=== PATIENT | male | born 2000 ===

== ENCOUNTER 2020-04-10 16:29 | Observation (INO) ==
[2020-04-10] MEDS ORDERED: Ketorolac 15 MG/ML VIAL IVP ONE (16:43)
[2020-04-10] MEDS ORDERED: Isovue-370 500 ML BOTTLE IVP ONE (16:43)
[2020-04-10] MEDS ORDERED: Ondansetron 4 MG/2 ML VIAL IVP ONE (16:43)
[2020-04-10] MEDS ORDERED: *HR* FentaNYL (PF) 100 MCG/2 ML VIAL IVP STA (16:43)
[2020-04-10 17:19] LABS: Basophils # 0.1 K/mcL (0.0-0.2); Basophils % 1.3 %; Eosinophils % 0.7 %; Hematocrit 39.5 % (37.5-50.1); Hemoglobin 13.1 g/dL (12.9-16.9); Immature Granulocytes % 0.4 % (0-4); Lymphocytes # 2.5 K/mcL (0.6-4.6); Lymphocytes % 45.2 %; Mean Corpuscular HGB Conc 33.2 g/dL (31.6-35.5); Mean Corpuscular Hemoglobin 27.7 pg (28.0-33.3); Mean Corpuscular Volume 83.5 fL (83.0-100.0); Mean Platelet Volume 8.2 fL (9.4-12.4); Monocytes # 0.9 K/mcL (0.0-1.3); Monocytes % 16.7 %; Platelet Count 262 K/mcL (140-400); Red Blood Count 4.73 M/mcL (4.19-5.50); Red Cell Distribution Width 11.8 % (11.5-14.5); Segmented Neutrophils % 35.7 %; White Blood Count 5.6 K/mcL (4.3-11.1)
[2020-04-10 17:33] LABS: Amorphous Sediment,Urine Few per hpf (None-Few); Bilirubin,Urine Negative (Negative); Blood,Urine Negative (Negative); Clarity,Urine Ex.Turbid (Clear); Color,Urine Yellow (Yellow); Glucose,Urine (UA) Normal (Normal); Ketones,Urine 10 mg/dL (Negative); Leukocyte Esterase,Urine Negative (Negative); Mucus,Urine Few per lpf (None-Few); Nitrite,Urine Negative (Negative); Protein,Urine 30 mg/dL (Neg-Trace); Specific Gravity,Urine 1.024 (1.010-1.025); WBC,Urine 15-30 per hpf (0-3)
[2020-04-10 17:34] LABS: BUN/Creatinine Ratio 21 (6-26); Blood Urea Nitrogen 12 mg/dL (6-20); Calcium 9.1 mg/dL (8.6-10.3); Carbon Dioxide 24 mEq/L (23-29); Chloride 99 mEq/L (98-107); Glucose 89 mg/dL (70-105); Osmolality,Calculated 275 (280-300); Potassium 3.6 mEq/L (3.5-5.1); Sodium 133 mEq/L (136-145); eGFR For African Americans > 60 (> 60); eGFR For Non-African Americans > 60 (> 60)
[2020-04-10 17:35] LABS: Albumin 4.3 g/dL (3.5-5.7); Albumin/Globulin Ratio 1.4 (1.1-2.2); Bilirubin,Direct 0.1 mg/dL (0.0-0.2); Bilirubin,Indirect 0.3 mg/dL (0.0-1.0); Bilirubin,Total 0.4 mg/dL (0.3-1.0); Globulin 3.1 g/dL (2.4-3.5); Platelet Estimate Normal (Normal); Total Protein 7.4 g/dL (6.4-8.9)
[2020-04-10 17:36] LABS: Reactive Lymphocytes Present (Not Present)
[2020-04-10] MEDS ORDERED: cefTRIAXone 1,000 MG in 0.9 % Sodium Chloride Mini Bag 100 ML IVPB ONE (18:28)
[2020-04-10] MEDS ORDERED: Ondansetron ODT 4 MG TAB.RAPDIS SL PRN (19:29)
[2020-04-10] MEDS ORDERED: Naloxone 0.4 MG/ML INJ IVP PRN (19:29)
[2020-04-10] MEDS ORDERED: *HR* OxyCODONE Immed Rel 5 MG TABLET PO PRN ×2 (19:31→19:32)
[2020-04-10] MEDS ORDERED: Ringers Solution, Lactated 1,000 ML IVC ONE (19:33)
[2020-04-10 20:36] LABS: INR 1.2; Prothrombin Time 13.9 Seconds (9.4-12.1)
[2020-04-10] MEDS: Ketorolac 15 MG/ML VIAL IVP PRN (22:19)
[2020-04-11] MEDS ORDERED: traZODone 50 MG TABLET PO SCH ×2 (03:00→21:00)
[2020-04-11] MEDS ORDERED: *HR* Enoxaparin 40 MG/0.4 ML SYRINGE SQ SCH (06:00)
[2020-04-11 06:21] LABS: Hematocrit 39.9 % (37.5-50.1); Hemoglobin 13.4 g/dL (12.9-16.9); Mean Corpuscular HGB Conc 33.6 g/dL (31.6-35.5); Mean Corpuscular Hemoglobin 28.3 pg (28.0-33.3); Mean Corpuscular Volume 84.2 fL (83.0-100.0); Mean Platelet Volume 8.2 fL (9.4-12.4); Platelet Count 261 K/mcL (140-400); Red Blood Count 4.74 M/mcL (4.19-5.50); Red Cell Distribution Width 11.9 % (11.5-14.5); White Blood Count 6.4 K/mcL (4.3-11.1)
[2020-04-11] MEDS: Ketorolac 15 MG/ML VIAL IVP PRN ×2 (06:33→16:17)
[2020-04-11 06:35] LABS: BUN/Creatinine Ratio 25 (6-26); Blood Urea Nitrogen 13 mg/dL (6-20); Carbon Dioxide 22 mEq/L (23-29); Chloride 102 mEq/L (98-107); Glucose 74 mg/dL (70-105); Osmolality,Calculated 279 (280-300); Potassium 3.5 mEq/L (3.5-5.1); Sodium 135 mEq/L (136-145); eGFR For African Americans > 60 (> 60); eGFR For Non-African Americans > 60 (> 60)
[2020-04-11] MEDS ORDERED: cefTRIAXone 1,000 MG in Water for inj. (sterile) 10 ML IVP SCH (09:00)
[2020-04-11] MEDS ORDERED: Gabapentin 400 MG CAPSULE PO SCH (10:00)
[2020-04-11] MEDS ORDERED: Dextrose Gel 15 GM/37.5 ML TUBE PO PRN ×2 (11:10→20:41)
[2020-04-11] MEDS ORDERED: Ondansetron 4 MG/2 ML VIAL IVP PRN (17:22)
[2020-04-11] MEDS ORDERED: *HR* FentaNYL (PF) 100 MCG/2 ML VIAL IVP PRN (17:22)
[2020-04-11] MEDS ORDERED: Isovue-300 50ML VIAL ONE (18:35)
[2020-04-11] MEDS ORDERED: Dexamethasone 4 MG/ML VIAL ONE (18:37)
[2020-04-11] MEDS ORDERED: *HR* Propofol 200 MG/20 ML VIAL IVP ONE (18:37)
[2020-04-11] MEDS ORDERED: Lidocaine -MPF 4% 5 ML AMPUL ONE (18:37)
[2020-04-11] MEDS ORDERED: Ondansetron 4 MG/2 ML VIAL ONE (18:37)
[2020-04-11] MEDS ORDERED: Lidocaine -MPF 2% 2 ML VIAL ONE (18:37)
[2020-04-11] MEDS ORDERED: *HR* Succinylcholine 200 MG/10 ML VIAL IVP ONE (18:37)
[2020-04-11] MEDS ORDERED: *HR* Midazolam HCl 2 MG/2 ML VIAL ONE (18:37)
[2020-04-11] MEDS ORDERED: *HR* FentaNYL (PF) 100 MCG/2 ML VIAL ONE (18:37)
[2020-04-11] MEDS ORDERED: Ketorolac 15 MG/ML VIAL IVP PRN (20:41)
[2020-04-11] MEDS ORDERED: Naloxone 0.4 MG/ML INJ IVP PRN (20:41)
[2020-04-11] MEDS ORDERED: Ondansetron ODT 4 MG TAB.RAPDIS SL PRN (20:41)
[2020-04-11] MEDS ORDERED: *HR* OxyCODONE Immed Rel 5 MG TABLET PO PRN ×2 (20:41)
[2020-04-11] MEDS ORDERED: rOPINIRole 1 MG TABLET PO SCH ×2 (21:00)
[2020-04-11] MEDS: Gabapentin 400 MG CAPSULE PO SCH (21:00)
[2020-04-12] MEDS ORDERED: *HR* Enoxaparin 40 MG/0.4 ML SYRINGE SQ SCH (06:00)
[2020-04-12 06:57] LABS: Hematocrit 36.6 % (37.5-50.1); Hemoglobin 12.4 g/dL (12.9-16.9); Mean Corpuscular HGB Conc 33.9 g/dL (31.6-35.5); Mean Corpuscular Hemoglobin 28.4 pg (28.0-33.3); Mean Corpuscular Volume 83.9 fL (83.0-100.0); Mean Platelet Volume 8.1 fL (9.4-12.4); Platelet Count 293 K/mcL (140-400); Red Blood Count 4.36 M/mcL (4.19-5.50); Red Cell Distribution Width 11.5 % (11.5-14.5); White Blood Count 4.8 K/mcL (4.3-11.1)
[2020-04-12 07:18] LABS: BUN/Creatinine Ratio 31 (6-26); Blood Urea Nitrogen 18 mg/dL (6-20); Calcium 9.2 mg/dL (8.6-10.3); Carbon Dioxide 14 mEq/L (23-29); Chloride 103 mEq/L (98-107); Glucose 117 mg/dL (70-105); Osmolality,Calculated 277 (280-300); Potassium 4.2 mEq/L (3.5-5.1); Sodium 132 mEq/L (136-145); eGFR For African Americans > 60 (> 60); eGFR For Non-African Americans > 60 (> 60)
[2020-04-12] MEDS: Gabapentin 400 MG CAPSULE PO SCH (08:55)
[2020-04-12] MEDS ORDERED: cefTRIAXone 1,000 MG in Water for inj. (sterile) 10 ML IVP SCH (09:00)
[2020-04-12 09:57] VITALS: BP 106/61
[2020-04-17 06:33] LABS: Calculi Mass 12 mg
== END 2020-04-12 11:35 | disposition home or self-care (01) ==
LOC: EMEROOARM 16:29 → 3ANU 16:29 → SUATTDRO 20:16 → 3ANU 21:05
PROVIDERS: ADMIT Internal Medicine; ATTEND Internal Medicine

== ENCOUNTER 2020-04-15 18:28 | Observation (INO) ==
[2020-04-15] MEDS ORDERED: Ondansetron 4 MG/2 ML VIAL IVP ONE (18:57)
[2020-04-15] MEDS ORDERED: Ketorolac 15 MG/ML VIAL IVP ONE (18:57)
[2020-04-15] MEDS ORDERED: Morphine Sulfate 2 MG/ML SYRINGE IVP ONE (19:07)
[2020-04-15] MEDS ORDERED: Isovue-370 500 ML BOTTLE IVP ONE (19:22)
[2020-04-15] MEDS ORDERED: cefTRIAXone 1,000 MG in Water for inj. (sterile) 10 ML IVP ONE (19:22)
[2020-04-15 19:28] LABS: Bilirubin,Urine Negative (Negative); Blood,Urine Moderate (Negative); Glucose,Urine (UA) Normal (Normal); Ketones,Urine 20 mg/dL (Negative); Leukocyte Esterase,Urine Small (Negative); Nitrite,Urine Negative (Negative); Protein,Urine 200 mg/dL (Neg-Trace); Specific Gravity,Urine 1.025 (1.010-1.025)
[2020-04-15 19:32] LABS: Color,Urine Red (Yellow)
[2020-04-15 19:34] LABS: Clarity,Urine Cloudy (Clear)
[2020-04-15] MEDS ORDERED: 0.9 % Sodium Chloride 1,000 ML IVC ONE (20:00)
[2020-04-15] MEDS ORDERED: 0.9 % Sodium Chloride 1,000 ML ONE (20:02)
[2020-04-15 20:29] LABS: Basophils # 0.2 K/mcL (0.0-0.2); Basophils % 1.8 %; Eosinophils # 0.1 K/mcL (0.0-0.6); Eosinophils % 0.6 %; Hemoglobin 12.9 g/dL (12.9-16.9); Immature Granulocytes % 1.4 % (0-4); Lymphocytes % 49.3 %; Mean Corpuscular HGB Conc 33.9 g/dL (31.6-35.5); Mean Corpuscular Hemoglobin 27.6 pg (28.0-33.3); Mean Corpuscular Volume 81.2 fL (83.0-100.0); Mean Platelet Volume 8.5 fL (9.4-12.4); Monocytes # 1.1 K/mcL (0.0-1.3); Monocytes % 12.9 %; Platelet Count 335 K/mcL (140-400); Red Blood Count 4.68 M/mcL (4.19-5.50); Red Cell Distribution Width 11.9 % (11.5-14.5)
[2020-04-15 20:43] LABS: Lymphocytes # 4.3 K/mcL (0.6-4.6); White Blood Count 8.8 K/mcL (4.3-11.1)
[2020-04-15 20:44] LABS: Reactive Lymphocytes Present (Not Present); Toxic Granulation Present (Not Present)
[2020-04-15 20:47] LABS: Albumin 4.8 g/dL (3.5-5.7); Albumin/Globulin Ratio 1.3 (1.1-2.2); Bilirubin,Direct 0.1 mg/dL (0.0-0.2); Bilirubin,Indirect 0.4 mg/dL (0.0-1.0); Bilirubin,Total 0.5 mg/dL (0.3-1.0); Globulin 3.8 g/dL (2.4-3.5); Total Protein 8.6 g/dL (6.4-8.9)
[2020-04-15 20:48] LABS: BUN/Creatinine Ratio 23 (6-26); Blood Urea Nitrogen 14 mg/dL (6-20); Calcium 9.6 mg/dL (8.6-10.3); Carbon Dioxide 24 mEq/L (23-29); Chloride 95 mEq/L (98-107); Glucose 90 mg/dL (70-105); Osmolality,Calculated 274 (280-300); Potassium 3.2 mEq/L (3.5-5.1); Sodium 132 mEq/L (136-145); eGFR For African Americans > 60 (> 60); eGFR For Non-African Americans > 60 (> 60)
[2020-04-15] MEDS ORDERED: Potassium Chloride 40 MEQ, Lidocaine 1% 2 ML in 0.9 % Sodium Chloride 500 ML IVPB ONE (20:49)
[2020-04-15] MEDS ORDERED: methylPREDNISolone 125 MG/2 ML VIAL IVP ONE (21:40)
[2020-04-15] MEDS ORDERED: MetroNIDAZOLE 500 MG/100 ML 500 MG/100 ML BAG IVPB ONE (21:46)
[2020-04-15] MEDS ORDERED: *HR* HYDROmorphone (PF) 1 MG/ML SYRINGE IVP ONE (21:58)
[2020-04-15 22:09] LABS: Hepatitis B Surface Antigen Nonreactive (Nonreactive)
[2020-04-15 22:37] LABS: Hepatitis C Virus Antibody Nonreactive (Nonreactive)
[2020-04-15 22:38] LABS: Hepatitis B Core IgM Nonreactive (Nonreactive)
[2020-04-15 22:39] LABS: Hepatitis A Antibody IgM Nonreactive (Nonreactive)
[2020-04-15] MEDS ORDERED: Ondansetron 4 MG/2 ML VIAL IVP PRN (22:48)
[2020-04-15] MEDS ORDERED: Naloxone 0.4 MG/ML INJ IVP PRN (22:48)
[2020-04-16] MEDS ORDERED: 0.9 % Sodium Chloride 1,000 ML IVC SCH (00:45)
[2020-04-16] MEDS ORDERED: Acetaminophen 325 MG TABLET PO PRN (00:48)
[2020-04-16] MEDS: rOPINIRole 1 MG TABLET PO SCH ×2 (02:07→19:39)
[2020-04-16] MEDS: traZODone 50 MG TABLET PO SCH ×2 (02:08→19:39)
[2020-04-16] MEDS: Gabapentin 400 MG CAPSULE PO SCH ×4 (02:08→19:39)
[2020-04-16] MEDS ORDERED: Ondansetron 4 MG/2 ML VIAL IVP PRN (03:00)
[2020-04-16] MEDS: Piperacillin/Tazobactam 3.375 GM in 0.9 % Sodium Chloride Mini Bag 100 ML IVPB SCH ×3 (03:37→19:34)
[2020-04-16] MEDS: *HR* Enoxaparin 40 MG/0.4 ML SYRINGE SQ SCH (05:43)
[2020-04-16] MEDS ORDERED: Gabapentin 400 MG CAPSULE PO SCH ×2 (08:00→21:00)
[2020-04-16] MEDS ORDERED: Potassium Chloride 40 MEQ, Lidocaine 1% 2 ML in 0.9 % Sodium Chloride 500 ML IVPB ONE (08:23)
[2020-04-16 08:53] LABS: Basophils # 0.1 K/mcL (0.0-0.2); Basophils % 0.9 %; Hematocrit 32.9 % (37.5-50.1); Hemoglobin 11.3 g/dL (12.9-16.9); Immature Granulocytes % 2.7 % (0-4); Lymphocytes # 2.9 K/mcL (0.6-4.6); Mean Corpuscular HGB Conc 34.3 g/dL (31.6-35.5); Mean Corpuscular Hemoglobin 28.4 pg (28.0-33.3); Mean Corpuscular Volume 82.7 fL (83.0-100.0); Mean Platelet Volume 8.5 fL (9.4-12.4); Monocytes # 0.3 K/mcL (0.0-1.3); Monocytes % 4.6 %; Neutrophils # 2.4 K/mcL (1.6-8.9); Platelet Count 289 K/mcL (140-400); Red Blood Count 3.98 M/mcL (4.19-5.50); Segmented Neutrophils % 41.8 %; White Blood Count 5.7 K/mcL (4.3-11.1)
[2020-04-16 09:19] LABS: Platelet Estimate Normal (Normal); Reactive Lymphocytes Present (Not Present)
[2020-04-16 09:28] LABS: Acetaminophen < 10 mcg/mL (10-20); Alanine Aminotransferase 86 Units/L (7-52); Albumin 3.5 g/dL (3.5-5.7); Albumin/Globulin Ratio 1.2 (1.1-2.2); Alkaline Phosphatase 184 Units/L (34-104); Aspartate Amino Transferase 68 Units/L (13-39); BUN/Creatinine Ratio 32 (6-26); Bilirubin,Total 0.4 mg/dL (0.3-1.0); Blood Urea Nitrogen 13 mg/dL (6-20); Calcium 8.3 mg/dL (8.6-10.3); Carbon Dioxide 17 mEq/L (23-29); Chloride 103 mEq/L (98-107); Glucose 118 mg/dL (70-105); Osmolality,Calculated 275 (280-300); Potassium 4.1 mEq/L (3.5-5.1); Sodium 132 mEq/L (136-145); Total Protein 6.5 g/dL (6.4-8.9); eGFR For African Americans > 60 (> 60); eGFR For Non-African Americans > 60 (> 60)
[2020-04-16] MEDS: *HR* OxyCODONE/APAP 5/325 TABLET PO PRN (14:14)
[2020-04-16] MEDS: hydrOXYzine pamoate 25 MG CAPSULE PO SCH (19:39)
[2020-04-16] MEDS: Melatonin 3 MG TABLET PO SCH (19:39)
[2020-04-16] MEDS ORDERED: traZODone 50 MG TABLET PO SCH (21:00)
[2020-04-16] MEDS ORDERED: rOPINIRole 1 MG TABLET PO SCH (21:00)
[2020-04-17 01:17] LABS: Hematocrit 33.8 % (37.5-50.1); Hemoglobin 11.6 g/dL (12.9-16.9); Mean Corpuscular HGB Conc 34.3 g/dL (31.6-35.5); Mean Corpuscular Hemoglobin 28.2 pg (28.0-33.3); Mean Platelet Volume 8.2 fL (9.4-12.4); Platelet Count 294 K/mcL (140-400); Red Blood Count 4.12 M/mcL (4.19-5.50); Red Cell Distribution Width 12.1 % (11.5-14.5)
[2020-04-17 01:49] LABS: Alanine Aminotransferase 72 Units/L (7-52); Albumin 3.5 g/dL (3.5-5.7); Albumin/Globulin Ratio 1.2 (1.1-2.2); Alkaline Phosphatase 139 Units/L (34-104); Aspartate Amino Transferase 46 Units/L (13-39); BUN/Creatinine Ratio 23 (6-26); Bilirubin,Direct 0.1 mg/dL (0.0-0.2); Bilirubin,Indirect 0.3 mg/dL (0.0-1.0); Bilirubin,Total 0.4 mg/dL (0.3-1.0); Blood Urea Nitrogen 11 mg/dL (6-20); Calcium 8.3 mg/dL (8.6-10.3); Carbon Dioxide 22 mEq/L (23-29); Chloride 102 mEq/L (98-107); Globulin 2.9 g/dL (2.4-3.5); Glucose 91 mg/dL (70-105); Osmolality,Calculated 273 (280-300); Potassium 3.6 mEq/L (3.5-5.1); Sodium 132 mEq/L (136-145); Total Protein 6.4 g/dL (6.4-8.9); eGFR For African Americans > 60 (> 60); eGFR For Non-African Americans > 60 (> 60)
[2020-04-17] MEDS: traZODone 50 MG TABLET PO SCH ×2 (03:53→23:19)
[2020-04-17] MEDS: Melatonin 3 MG TABLET PO SCH ×2 (03:53→19:38)
[2020-04-17] MEDS: *HR* Enoxaparin 40 MG/0.4 ML SYRINGE SQ SCH (04:46)
[2020-04-17] MEDS: Piperacillin/Tazobactam 3.375 GM in 0.9 % Sodium Chloride Mini Bag 100 ML IVPB SCH ×3 (04:46→19:32)
[2020-04-17] MEDS: *HR* OxyCODONE/APAP 5/325 TABLET PO PRN (04:59)
[2020-04-17] MEDS: Gabapentin 400 MG CAPSULE PO SCH ×3 (07:38→23:19)
[2020-04-17] MEDS: *HR* OxyCODONE/APAP 10/325 TABLET PO PRN (15:48)
[2020-04-17] MEDS: hydrOXYzine pamoate 25 MG CAPSULE PO SCH (19:39)
[2020-04-17] MEDS: rOPINIRole 1 MG TABLET PO SCH (23:19)
[2020-04-18] MEDS: Piperacillin/Tazobactam 3.375 GM in 0.9 % Sodium Chloride Mini Bag 100 ML IVPB SCH ×3 (04:33→20:33)
[2020-04-18] MEDS ORDERED: Ketorolac 15 MG/ML VIAL IVP ONE (04:46)
[2020-04-18] MEDS ORDERED: Ondansetron 4 MG/2 ML VIAL IVP ONE (04:47)
[2020-04-18] MEDS ORDERED: Prochlorperazine 10 MG/2 ML VIAL IVP ONE (06:14)
[2020-04-18 06:37] LABS: Basophils # 0.1 K/mcL (0.0-0.2); Basophils % 1.1 %; Eosinophils # 0.1 K/mcL (0.0-0.6); Eosinophils % 0.8 %; Hematocrit 37.3 % (37.5-50.1); Hemoglobin 12.5 g/dL (12.9-16.9); Immature Granulocytes % 2.5 % (0-4); Lymphocytes # 3.1 K/mcL (0.6-4.6); Lymphocytes % 38.6 %; Mean Corpuscular HGB Conc 33.5 g/dL (31.6-35.5); Mean Corpuscular Hemoglobin 27.2 pg (28.0-33.3); Mean Corpuscular Volume 81.1 fL (83.0-100.0); Mean Platelet Volume 8.6 fL (9.4-12.4); Monocytes # 1.5 K/mcL (0.0-1.3); Monocytes % 18.4 %; Neutrophils # 3.1 K/mcL (1.6-8.9); Platelet Count 366 K/mcL (140-400); Red Cell Distribution Width 12.2 % (11.5-14.5); Segmented Neutrophils % 38.6 %; White Blood Count 7.9 K/mcL (4.3-11.1)
[2020-04-18 07:01] LABS: % Iron Saturation 14 % (20-55); Iron 31 mcg/dL (65-175); Transferrin 158 mg/dL (203-362)
[2020-04-18 07:06] LABS: Alanine Aminotransferase 80 Units/L (7-52); Albumin 3.8 g/dL (3.5-5.7); Albumin/Globulin Ratio 1.2 (1.1-2.2); Alkaline Phosphatase 179 Units/L (34-104); Aspartate Amino Transferase 62 Units/L (13-39); BUN/Creatinine Ratio 19 (6-26); Bilirubin,Direct 0.1 mg/dL (0.0-0.2); Bilirubin,Indirect 0.3 mg/dL (0.0-1.0); Bilirubin,Total 0.4 mg/dL (0.3-1.0); Blood Urea Nitrogen 8 mg/dL (6-20); Calcium 8.6 mg/dL (8.6-10.3); Carbon Dioxide 23 mEq/L (23-29); Chloride 98 mEq/L (98-107); Globulin 3.1 g/dL (2.4-3.5); Glucose 79 mg/dL (70-105); Osmolality,Calculated 271 (280-300); Potassium 3.2 mEq/L (3.5-5.1); Sodium 132 mEq/L (136-145); Total Protein 6.9 g/dL (6.4-8.9); eGFR For African Americans > 60 (> 60); eGFR For Non-African Americans > 60 (> 60)
[2020-04-18 07:14] LABS: Ferritin 231 ng/mL (20-250)
[2020-04-18 08:25] LABS: Anisocytosis 1+ (Not Present); Platelet Estimate Normal (Normal)
[2020-04-18] MEDS: Gabapentin 400 MG CAPSULE PO SCH ×3 (08:28→20:31)
[2020-04-18] MEDS ORDERED: *HR* Propofol 200 MG/20 ML VIAL IVP ONE (11:02)
[2020-04-18] MEDS ORDERED: Lidocaine -MPF 2% 2 ML VIAL ONE (11:05)
[2020-04-18] MEDS ORDERED: 0.9 % Sodium Chloride Mini Bag 100 ML ONE (11:53)
[2020-04-18] MEDS ORDERED: Potassium Chloride 20 MEQ, Lidocaine 1% 2 ML in 0.9 % Sodium Chloride 250 ML IVPB ONE (11:58)
[2020-04-18] MEDS ORDERED: 0.9 % Sodium Chloride 500 ML IVC SCH (12:00)
[2020-04-18] MEDS: *HR* OxyCODONE/APAP 10/325 TABLET PO PRN (14:56)
[2020-04-18 18:41] LABS: BUN/Creatinine Ratio 27 (6-26); Blood Urea Nitrogen 12 mg/dL (6-20); Calcium 8.4 mg/dL (8.6-10.3); Carbon Dioxide 26 mEq/L (23-29); Chloride 98 mEq/L (98-107); Glucose 160 mg/dL (70-105); Osmolality,Calculated 273 (280-300); Potassium 3.2 mEq/L (3.5-5.1); Sodium 130 mEq/L (136-145); eGFR For African Americans > 60 (> 60); eGFR For Non-African Americans > 60 (> 60)
[2020-04-18] MEDS ORDERED: Potassium Chloride 40 MEQ, Lidocaine 1% 2 ML in 0.9 % Sodium Chloride 500 ML IVPB ONE (20:25)
[2020-04-18] MEDS: hydrOXYzine pamoate 25 MG CAPSULE PO SCH (20:31)
[2020-04-18] MEDS: traZODone 50 MG TABLET PO SCH (20:31)
[2020-04-18] MEDS: *HR* OxyCODONE/APAP 5/325 TABLET PO PRN (20:32)
[2020-04-18] MEDS: rOPINIRole 1 MG TABLET PO SCH (20:32)
[2020-04-18] MEDS: Melatonin 3 MG TABLET PO SCH (20:32)
[2020-04-19 04:25] LABS: Hematocrit 33.2 % (37.5-50.1); Hemoglobin 11.1 g/dL (12.9-16.9); Mean Corpuscular HGB Conc 33.4 g/dL (31.6-35.5); Mean Corpuscular Hemoglobin 27.7 pg (28.0-33.3); Mean Corpuscular Volume 82.8 fL (83.0-100.0); Mean Platelet Volume 8.6 fL (9.4-12.4); Platelet Count 301 K/mcL (140-400); Red Blood Count 4.01 M/mcL (4.19-5.50); Red Cell Distribution Width 12.2 % (11.5-14.5); White Blood Count 5.7 K/mcL (4.3-11.1)
[2020-04-19 04:41] LABS: Alanine Aminotransferase 110 Units/L (7-52); Albumin 3.3 g/dL (3.5-5.7); Albumin/Globulin Ratio 1.2 (1.1-2.2); Alkaline Phosphatase 121 Units/L (34-104); Aspartate Amino Transferase 122 Units/L (13-39); BUN/Creatinine Ratio 20 (6-26); Bilirubin,Direct 0.1 mg/dL (0.0-0.2); Bilirubin,Indirect 0.3 mg/dL (0.0-1.0); Bilirubin,Total 0.4 mg/dL (0.3-1.0); Blood Urea Nitrogen 8 mg/dL (6-20); Calcium 8.4 mg/dL (8.6-10.3); Carbon Dioxide 21 mEq/L (23-29); Chloride 104 mEq/L (98-107); Globulin 2.8 g/dL (2.4-3.5); Glucose 78 mg/dL (70-105); Osmolality,Calculated 269 (280-300); Potassium 4.3 mEq/L (3.5-5.1); Sodium 131 mEq/L (136-145); Total Protein 6.1 g/dL (6.4-8.9); eGFR For African Americans > 60 (> 60); eGFR For Non-African Americans > 60 (> 60)
[2020-04-19] MEDS: Piperacillin/Tazobactam 3.375 GM in 0.9 % Sodium Chloride Mini Bag 100 ML IVPB SCH ×2 (04:48→11:37)
[2020-04-19 05:04] LABS: Anisocytosis 1+ (Not Present); Lymphocytes # 3.1 K/mcL (0.6-4.6); Monocytes # 0.2 K/mcL (0.0-1.3); Neutrophils # 2.4 K/mcL (1.6-8.9); Platelet Estimate Normal (Normal); Reactive Lymphocytes Present (Not Present)
[2020-04-19] MEDS: Gabapentin 400 MG CAPSULE PO SCH ×2 (07:45→12:17)
[2020-04-19] MEDS ORDERED: *HR* FentaNYL (PF) 100 MCG/2 ML VIAL IVP ONE (08:05)
[2020-04-19] MEDS ORDERED: *HR* Midazolam HCl 2 MG/2 ML VIAL IVP ONE (08:05)
[2020-04-19] MEDS ORDERED: 0.9 % Sodium Chloride 1,000 ML IVC SCH (08:45)
[2020-04-19 09:52] LABS: Bacteria,Urine Few per hpf (None-Few); Bilirubin,Urine Negative (Negative); Blood,Urine Moderate (Negative); Clarity,Urine Turbid (Clear); Color,Urine Light-Yellow (Yellow); Glucose,Urine (UA) Normal (Normal); Ketones,Urine 10 mg/dL (Negative); Leukocyte Esterase,Urine Small (Negative); Mucus,Urine Few per lpf (None-Few); Nitrite,Urine Negative (Negative); PH,Urine 6.5 pH Units (5.0-8.0); Protein,Urine 30 mg/dL (Neg-Trace); RBC,Urine TNTC per hpf (0-3); Specific Gravity,Urine 1.019 (1.010-1.025); Urobilinogen,Urine Normal (Normal)
[2020-04-19] MEDS: *HR* OxyCODONE/APAP 5/325 TABLET PO PRN (11:23)
[2020-04-19 12:28] LABS: INR 1.2; Prothrombin Time 13.6 Seconds (9.4-12.1)
[2020-04-19 12:42] LABS: % Iron Saturation 11 % (20-55); Iron 26 mcg/dL (65-175); Transferrin 165 mg/dL (203-362)
[2020-04-19 16:06] VITALS: BP 104/64
[2020-04-19] MEDS: *HR* OxyCODONE/APAP 10/325 TABLET PO PRN (16:42)
[2020-04-22 10:23] LABS: AFP Tumor Marker Non-Pregnant 2 ng/mL (0-9)
[2020-04-22 12:04] LABS: F-Actin (sm muscle) Ab IgG 8 Units (0-19)
[2020-04-22 18:09] LABS: ANA IgG by ELISA NONE DETECTED (None Detected)
== END 2020-04-19 19:30 | disposition short-term general hospital (02) ==
LOC: EMEROOARM 18:28 → 3BNU 18:28
PROVIDERS: ADMIT Family Medicine; ATTEND Family Medicine
PROC: ENDOEBX (2020-04-18 14:00)
PROC: IRLYMPH (2020-04-19 11:00)

== ENCOUNTER 2020-12-31 01:23 | Observation (INO) ==
[2020-12-31] MEDS ORDERED: Naloxone 0.4 MG/ML INJ IVP PRN ×2 (03:35→16:46)
[2020-12-31] MEDS ORDERED: Ondansetron 4 MG/2 ML VIAL IVP PRN ×2 (03:35→16:46)
[2020-12-31 04:13] LABS: Bilirubin,Urine Negative (Negative); Blood,Urine Negative (Negative); Clarity,Urine Clear (Clear); Color,Urine Colorless (Yellow); Glucose,Urine (UA) Normal (Normal); Ketones,Urine Negative (Negative); Leukocyte Esterase,Urine Negative (Negative); Nitrite,Urine Negative (Negative); Protein,Urine Negative (Neg-Trace); Urobilinogen,Urine Normal (Normal)
[2020-12-31] MEDS: 0.9 % Sodium Chloride 1,000 ML IVC SCH ×2 (04:14→13:56)
[2020-12-31 04:49] LABS: Basophils # 0.1 K/mcL (0.0-0.2); Basophils % 0.8 %; Eosinophils # 0.1 K/mcL (0.0-0.6); Eosinophils % 1.3 %; Hematocrit 37.6 % (37.5-50.1); Hemoglobin 12.7 g/dL (12.9-16.9); Immature Granulocytes % 0.2 % (0-4); Lymphocytes # 1.9 K/mcL (0.6-4.6); Lymphocytes % 22.9 %; Mean Corpuscular HGB Conc 33.8 g/dL (31.6-35.5); Mean Corpuscular Volume 82.8 fL (83.0-100.0); Mean Platelet Volume 8.3 fL (9.4-12.4); Monocytes # 1.3 K/mcL (0.0-1.3); Monocytes % 15.7 %; Platelet Count 309 K/mcL (140-400); Red Blood Count 4.54 M/mcL (4.19-5.50); Red Cell Distribution Width 12.7 % (11.5-14.5); Segmented Neutrophils % 59.1 %; White Blood Count 8.5 K/mcL (4.3-11.1)
[2020-12-31 04:56] LABS: INR 1.1; Prothrombin Time 12.8 Seconds (9.4-12.1)
[2020-12-31 05:02] LABS: BUN/Creatinine Ratio 13 (6-26); Blood Urea Nitrogen 10 mg/dL (6-20); Calcium 8.7 mg/dL (8.6-10.3); Carbon Dioxide 26 mEq/L (23-29); Chloride 104 mEq/L (98-107); Glucose 94 mg/dL (70-105); Magnesium 1.9 mg/dL (1.6-2.6); Osmolality,Calculated 285 (280-300); Potassium 3.2 mEq/L (3.5-5.1); Sodium 138 mEq/L (136-145); eGFR For African Americans > 60 (> 60); eGFR For Non-African Americans > 60 (> 60)
[2020-12-31] MEDS: Gabapentin 400 MG CAPSULE PO SCH ×5 (08:47→21:26)
[2020-12-31] MEDS ORDERED: Potassium Chloride 20 MEQ, Lidocaine 1% 2 ML in 0.9 % Sodium Chloride 250 ML IVPB ONE (09:04)
[2020-12-31] MEDS ORDERED: Isovue-300 50ML VIAL ONE (14:32)
[2020-12-31] MEDS ORDERED: Ondansetron 4 MG/2 ML VIAL ONE (14:38)
[2020-12-31] MEDS ORDERED: Lidocaine -MPF 2% 2 ML VIAL ONE (14:38)
[2020-12-31] MEDS ORDERED: *HR* Propofol 200 MG/20 ML VIAL IVP ONE (14:38)
[2020-12-31] MEDS ORDERED: *HR* FentaNYL (PF) 100 MCG/2 ML VIAL ONE (14:40)
[2020-12-31] MEDS ORDERED: *HR* OxyCODONE Immed Rel 5 MG TABLET PO PRN (14:56)
[2020-12-31] MEDS ORDERED: *HR* Midazolam HCl 2 MG/2 ML VIAL ONE (15:13)
[2020-12-31] MEDS ORDERED: 0.9 % Sodium Chloride 1,000 ML IVC SCH (16:46)
[2020-12-31] MEDS ORDERED: traZODone 50 MG TABLET PO SCH ×2 (21:00)
[2020-12-31] MEDS ORDERED: rOPINIRole 1 MG TABLET PO SCH ×2 (21:00)
[2021-01-01 07:13] VITALS: BP 117/52; PULSE 78; TEMP 98.2; O2SAT 96
[2021-01-01] MEDS: Gabapentin 400 MG CAPSULE PO SCH (08:07)
[2021-01-04 10:21] LABS: Calculi Mass 13 mg
== END 2021-01-01 11:23 | disposition home or self-care (01) ==
LOC: 3BNU → SUATTDRO 02:59
PROVIDERS: ADMIT Student in an Organized Health Care Education/Training Program; ATTEND Internal Medicine